=== PATIENT | male | born 1995 | race African-American/Black ===

== ENCOUNTER 2018-04-18 04:32 | Emergency (ER) | payer MEDICAID ==
[~2018-04-18] VITALS: Ht 172.7 cm; Wt 64.0 kg
[2018-04-18] MEDS ORDERED: TETANUS, DIPHTHERIA, PERTUSSIS VAC/PF 0.5ML (>7YR OLD) IM ONE (05:00)
[2018-04-18 05:40] VITALS: BP 118/71
== END 2018-04-18 05:41 | disposition home or self-care (01) ==
LOC: ER 05:28
DX: S01.01XA Laceration without foreign body of scalp, initial encounter (principal); X99.0XXA Assault by sharp glass, initial encounter; Y93.89 Activity, other specified; Y92.018 Other place in single-family (private) house as the place of occurrence of the external cause
CPT/HCPCS: 12001; 90471; 90715; 99284